=== PATIENT | male | born 1970 | race Caucasian/White ===

== ENCOUNTER 2020-02-12 15:22 | Emergency (ER) | payer SELFPAY ==
[2020-02-12 15:31] VITALS: BP 146/105; PULSE 93; RESP 14; TEMP 36.8; O2SAT 99; BMI 28.7
--- NOTE | 2020-02-12 15:57 | ED_ITS ---
Documented by User: ARTEMIO Ackerman 02/15/20 07:01 HPI - Abdominal Pain General: Chief Complaint: Abdominal Pain Stated Complaint: abd pain Time Seen by Provider: 02/12/20 15:38 Source: patient Mode of arrival: ambulatory Limitations: no limitations History of Present Illness: HPI narrative: Patient is a 50-year-old male who presents to ED today with complaints of diffuse abdominal pain that began 2 to 3 days ago and has progressively worsened. Patient has noticed constipation and states his last normal bowel movement was 3 days ago. He has had 1 extremely small stool since that time but otherwise none. He has tried stool softeners without relief. He does report still being able to pass gas. Patient tells me last night he began vomiting and has not been able to hold down any food or drink since. He reports decreased urination due to the lack of fluid intake. He has not noticed any blood in his vomit. Patient has had a previous c holecystectomy approximately 15 years ago but no other abdominal surgeries. MD elicited complaint: abdominal pain Onset (ago): day(s) Pain Consistency: constant Location: Diffuse Severity: moderate Quality: cramping and fullness Radiation: back Migration to: no migration Exacerbating factors: eating Relieving factors: nothing Associated Symptoms: Reports constipation, nausea and vomiting; Denies chills, coffee ground emesis, diarrhea, dysuria, fever(s), heartburn, hematochezia, hematuria, hematemesis, melena and syncope Review of Systems Const: Denies: fever or chills Eyes: Denies: change in vision or blurry vision Card: Denies: chest pain, palpitations, irregular heart rhythm, lightheadedness, syncope or shortness of breath on exertion Resp: Denies: shortness of breath, productive cough or pain on inspiration GI: Reports: abdominal pain, nausea, vomiting and constipation; Denies: vomiting blood, coffee grounds in vomit, difficulty swallowing, heartburn/indigestion, diarrhea, painful bowel movements, rectal pain, rectal itching, blood in stool, black tarry stool, mucus in stool, white/light colored stool or fatty stool : Denies: flank pain, difficulty urinating, painful urination, urinary frequency, urinary urgency, urinary hesitancy, urinary incontinence, blood in urine, genital pain, testicular pain or scrotal swelling Musc: Denies: neck pain, back pain or joint pain Skin/Breast: Denies: rash Neuro: Denies: headache, numbness in extremities, weakness in extremities or changes in sensation PFSH ED PFSH: Social History Smoking and tobacco status: current every day smoker Physical Exam Const: COMMON NORMALS: average body habitus, oriented x3, no limitations, healthy appearing, alert and well nourished GENERAL APPEARANCE: in distress (appears uncomfortable) Neck/C-Spine: COMMON NORMALS: full ROM, no lymphadenopathy and no meningeal signs GENERAL: Yes normal visual inspection CERVICAL SPINE: Yes cervical ROM normal Resp: COMMON NORMALS: normal respiratory effort and clear to auscultation bilaterally AUSCULTATION: clear to auscultation bilaterally Cardio: COMMON NORMALS: regular rate and regular rhythm RATE: regular rate RHYTHM: regular rhythm GI: COMMON NORMALS: no masses INSPECTION: Yes normal to inspection AUSCULTATION: Yes normoactive bowel sounds PALPATION: Yes tender (throughout but more so across upper abdomen) : COMMON NORMALS: Yes no CVA tenderness BLADDER/KIDNEY EXAM: Yes no CVA tenderness Back/Pelvis: COMMON NORMALS: no CVA tenderness Extremity: COMMON NORMALS: normal to inspection, full ROM, no calf tenderness and no pedal edema Neuro: COMMON NORMALS: oriented x3 SENSORIUM/ORIENTATION: Yes alert MENINGEAL SIGNS: Yes no meningeal signs Skin: COMMON NORMALS: no rashes or lesions noted GENERAL SKIN EXAM: no rashes or lesions noted Course Vital Signs: Vital signs: Vital Signs Temperature 98.3 F 02/12/20 15:31 Pulse Rate 77 02/12/20 20:03 Respiratory Rate 18 02/12/20 20:03 Blood Pressure 180/108 02/12/20 20:03 Pulse Oximetry 97 02/12/20 20:03 MDM - Abdominal Pain MDM Narrative: Medical decision making narrative: Care was transferred to PEPE Thompson at shift change Lab Data: Labs: Lab Results 02/12/20 02/12/20 02/12/20 Range/Units 16:14 16:14 16:14 WBC 15.2 H (4.0-10.0) 10^3/ uL RBC 5.87 H (4.1-5.3) 10^6/u L Hgb 18.0 H (11.7-16.6) g/dL Hct 54.1 H (42.0-52.0) % MCV 92.2 (80-94) fL MCH 30.7 (28.0-34.0) pg MCHC 33.3 (30.0-36.0) g/dL RDW 12.9 (12.1-15.1) % Plt Count 225 (130-400) 10^3/c mm MPV 9.6 (7.4-10.4) fL Neut % (Auto) 75.5 % Lymph % (Auto) 15.2 % Brule % (Auto) 8.6 % Eos % (Auto) 0.1 % Baso % (Auto) 0.3 % Neut # (Auto) 11.5 H (1.8-7.7) 10^3/u L Lymph # (Auto) 2.3 (0.8-4.8) 10^3/u L Brule # (Auto) 1.3 H (0.2-0.9) 10^3/u L Eos # (Auto) 0.0 (0.0-0.8) 10^3/u L Baso # (Auto) 0.1 (0.0-0.1) 10^3/u L Nucleated RBC % (a uto) 0 % Nucleated RBCs # 0.0 /100WBC Sodium 136 (136-145) mmol/L Potassium 4.0 (3.5-5.1) mmol/L Chloride 93 L (98-107) mmol/L Carbon Dioxide 26 (22-29) mmol/L Anion Gap 21.0 H (5-19) BUN 12 (6-20) mg/dL Creatinine 0.9 (0.7-1.2) mg/dL GFR Calculation 89.3 L (90-130) mL/min Glucose 106 (65-115) mg/dL Calculated Osmolal ity 279 L (285-295) mOsm/k g Lactate 1.3 (0.5-2.2) mmol/L Calcium 9.8 (8.5-10.5) mg/dL Total Bilirubin 1.2 (0.15-1.2) mg/dL AST 16 (0-40) U/L ALT 10 (0-41) U/L Alkaline Phosphata se 90 (40-130) IU/L Total Protein 9.0 H (6.6-8.7) g/dL Albumin 4.6 (3.5-5.2) g/dL Globulin 4.4 (1.3-4.6) g/dL Lipase 156 H (13-60) U/L Urine Color (Yellow) Urine Appearance (CLEAR) Urine pH (5-7) Ur Specific Gravit y (1.005-1.030) Urine Protein (Negative) Urine Glucose (UA) (Normal) Urine Ketones (Negative) Urine Blood (Negative) Urine Nitrate (Negative) Urine Bilirubin (NEGATIVE) Urine Urobilinogen (Negative) mg/dL Ur Leukocyte Jesica ase (Negative) Urine RBC (0-2) /hpf Urine WBC (0-5) /hpf Ur Squamous Epith Cells (0-5) Urine Bacteria (NONE) 02/12/20 Range/Units 17:45 WBC (4.0-10.0) 10^3/ uL RBC (4.1-5.3) 10^6/u L Hgb (11.7-16.6) g/dL Hct (42.0-52.0) % MCV (80-94) fL MCH (28.0-34.0) pg MCHC (30.0-36.0) g/dL RDW (12.1-15.1) % Plt Count (130-400) 10^3/c mm MPV (7.4-10.4) fL Neut % (Auto) % Lymph % (Auto) % Brule % (Auto) % Eos % (Auto) % Baso % (Auto) % Neut # (Auto) (1.8-7.7) 10^3/u L Lymph # (Auto) (0.8-4.8) 10^3/u L Brule # (Auto) (0.2-0.9) 10^3/u L Eos # (Auto) (0.0-0.8) 10^3/u L Baso # (Auto) (0.0-0.1) 10^3/u L Nucleated RBC % (a uto) % Nucleated RBCs # /100WBC Sodium (136-145) mmol/L Potassium (3.5-5.1) mmol/L Chloride (98-107) mmol/L Carbon Dioxide (22-29) mmol/L Anion Gap (5-19) BUN (6-20) mg/dL Creatinine (0.7-1.2) mg/dL GFR Calculation (90-130) mL/min Glucose (65-115) mg/dL Calculated Osmolal ity (285-295) mOsm/k g Lactate (0.5-2.2) mmol/L Calcium (8.5-10.5) mg/dL Total Bilirubin (0.15-1.2) mg/dL AST (0-40) U/L ALT (0-41) U/L Alkaline Phosphata se (40-130) IU/L Total Protein (6.6-8.7) g/dL Albumin (3.5-5.2) g/dL Globulin (1.3-4.6) g/dL Lipase (13-60) U/L Urine Color Yellow (Yellow) Urine Appearance Clear (CLEAR) Urine pH 5 (5-7) Ur Specific Gravit y 1.005 (1.005-1.030) Urine Protein 1+ H (Negative) Urine Glucose (UA) Norm (Normal) Urine Ketones 2+ H (Negative) Urine Blood 2+ H (Negative) Urine Nitrate Negative (Negative) Urine Bilirubin Neg (NEGATIVE) Urine Urobilinogen 1 H (Negative) mg/dL Ur Leukocyte Jesica ase Negative (Negative) Urine RBC 5-10 H (0-2) /hpf Urine WBC None (0-5) /hpf Ur Squamous Epith Cells 0-4 H (0-5) Urine Bacteria 1+ H (NONE) Discharge Plan Discharge Patient Disposition: Home, Self-Care Clinical Impression: Abnormal serum level of lipase Constipation Qualifiers: Constipation type: unspecified constipation type Qualified Code(s): K59.00 - Constipation, unspecified Condition: Stable Prescriptions: No Action aspirin 325 mg Tablet 325 mg PO DAILY RF: 0 lisinopril 40 mg tablet 40 mg PO DAILY RF: 0 Discharge Orders: Discharge Order (Routine); Ordered 02/12/20 Ordered By: Eladio Chao Referrals: Riya Munoz APN [Primary Care Provider] - Discharge Diet: Advance as tolerated and Usual diet Discharge Activity: Increase activity as tolerated Patient Instructions: Constipation (ED) Activity Restrictions/Additional Instructions: Follow-up with medical provider as directed. Take medications as prescribed. Return to the ER or your medical provider if condition worsens. Please read and understand discharge instructions. If any questions ask please. Follow-up with your provider on Saturday or Saturday and get a recheck of your lipase level because it is elevated. Return here to the ER if symptoms worsen can use magnesium citrate to help with constipation. Advance diet slowly stay on liquids next 24 hours Discharge Date/Time: 02/12/20 20:03 Coding Level of Care Code ED Final Assembly Worker for Chg Fwd Exam Comprehensive Documented by User: PEPE Thompson 02/12/20 19:38 HPI - Abdominal Pain General: Chief Complaint: Abdominal Pain Stated Complaint: abd pain Time Seen by Provider: 02/12/20 15:38 [facility] ED PFSH: Social History Smoking and tobacco status: current every day smoker Course Vital Signs: Vital signs: Vital Signs Temperature 98.3 F 02/12/20 15:31 Pulse Rate 77 02/12/20 20:03 Respiratory Rate 18 02/12/20 20:03 Blood Pressure 180/108 02/12/20 20:03 Pulse Oximetry 97 02/12/20 20:03 MDM - Abdominal Pain MDM Narrative: Medical decision making narrative: Discussed case with Dr. Nghia Bonilla agrees with plan reviewed CT together. Lab Data: Labs: Lab Results 02/12/20 02/12/20 02/12/20 Range/Units 16:14 16:14 16:14 WBC 15.2 H (4.0-10.0) 10^3/ uL RBC 5.87 H (4.1-5.3) 10^6/u L Hgb 18.0 H (11.7-16.6) g/dL Hct 54.1 H (42.0-52.0) % MCV 92.2 (80-94) fL MCH 30.7 (28.0-34.0) pg MCHC 33.3 (30.0-36.0) g/dL RDW 12.9 (12.1-15.1) % Plt Count 225 (130-400) 10^3/c mm MPV 9.6 (7.4-10.4) fL Neut % (Auto) 75.5 % Lymph % (Auto) 15.2 % Brule % (Auto) 8.6 % Eos % (Auto) 0.1 % Baso % (Auto) 0.3 % Neut # (Auto) 11.5 H (1.8-7.7) 10^3/u L Lymph # (Auto) 2.3 (0.8-4.8) 10^3/u L Brule # (Auto) 1.3 H (0.2-0.9) 10^3/u L Eos # (Auto) 0.0 (0.0-0.8) 10^3/u L Baso # (Auto) 0.1 (0.0-0.1) 10^3/u L Nucleated RBC % (a uto) 0 % Nucleated RBCs # 0.0 /100WBC Sodium 136 (136-145) mmol/L Potassium 4.0 (3.5-5.1) mmol/L Chloride 93 L (98-107) mmol/L Carbon Dioxide 26 (22-29) mmol/L Anion Gap 21.0 H (5-19) BUN 12 (6-20) mg/dL Creatinine 0.9 (0.7-1.2) mg/dL GFR Calculation 89.3 L (90-130) mL/min Glucose 106 (65-115) mg/dL Calculated Osmolal ity 279 L (285-295) mOsm/k g Lactate 1.3 (0.5-2.2) mmol/L Calcium 9.8 (8.5-10.5) mg/dL Total Bilirubin 1.2 (0.15-1.2) mg/dL AST 16 (0-40) U/L ALT 10 (0-41) U/L Alkaline Phosphata se 90 (40-130) IU/L Total Protein 9.0 H (6.6-8.7) g/dL Albumin 4.6 (3.5-5.2) g/dL Globulin 4.4 (1.3-4.6) g/dL Lipase 156 H (13-60) U/L Urine Color (Yellow) Urine Appearance (CLEAR) Urine pH (5-7) Ur Specific Gravit y (1.005-1.030) Urine Protein (Negative) Urine Glucose (UA) (Normal) Urine Ketones (Negative) Urine Blood (Negative) Urine Nitrate (Negative) Urine Bilirubin (NEGATIVE) Urine Urobilinogen (Negative) mg/dL Ur Leukocyte Jesica ase (Negative) Urine RBC (0-2) /hpf Urine WBC (0-5) /hpf Ur Squamous Epith Cells (0-5) Urine Bacteria (NONE) 02/12/20 Range/Units 17:45 WBC (4.0-10.0) 10^3/ uL RBC (4.1-5.3) 10^6/u L Hgb (11.7-16.6) g/dL Hct (42.0-52.0) % MCV (80-94) fL MCH (28.0-34.0) pg MCHC (30.0-36.0) g/dL RDW (12.1-15.1) % Plt Count (130-400) 10^3/c mm MPV (7.4-10.4) fL Neut % (Auto) % Lymph % (Auto) % Brule % (Auto) % Eos % (Auto) % Baso % (Auto) % Neut # (Auto) (1.8-7.7) 10^3/u L Lymph # (Auto) (0.8-4.8) 10^3/u L Brule # (Auto) (0.2-0.9) 10^3/u L Eos # (Auto) (0.0-0.8) 10^3/u L Baso # (Auto) (0.0-0.1) 10^3/u L Nucleated RBC % (a uto) % Nucleated RBCs # /100WBC Sodium (136-145) mmol/L Potassium (3.5-5.1) mmol/L Chloride (98-107) mmol/L Carbon Dioxide (22-29) mmol/L Anion Gap (5-19) BUN (6-20) mg/dL Creatinine (0.7-1.2) mg/dL GFR Calculation (90-130) mL/min Glucose (65-115) mg/dL Calculated Osmolal ity (285-295) mOsm/k g Lactate (0.5-2.2) mmol/L Calcium (8.5-10.5) mg/dL Total Bilirubin (0.15-1.2) mg/dL AST (0-40) U/L ALT (0-41) U/L Alkaline Phosphata se (40-130) IU/L Total Protein (6.6-8.7) g/dL Albumin (3.5-5.2) g/dL Globulin (1.3-4.6) g/dL Lipase (13-60) U/L Urine Color Yellow (Yellow) Urine Appearance Clear (CLEAR) Urine pH 5 (5-7) Ur Specific Gravit y 1.005 (1.005-1.030) Urine Protein 1+ H (Negative) Urine Glucose (UA) Norm (Normal) Urine Ketones 2+ H (Negative) Urine Blood 2+ H (Negative) Urine Nitrate Negative (Negative) Urine Bilirubin Neg (NEGATIVE) Urine Urobilinogen 1 H (Negative) mg/dL Ur Leukocyte Jesica ase Negative (Negative) Urine RBC 5-10 H (0-2) /hpf Urine WBC None (0-5) /hpf Ur Squamous Epith Cells 0-4 H (0-5) Urine Bacteria 1+ H (NONE) Discharge Plan Discharge Patient Disposition: Home, Self-Care Clinical Impression: Abnormal serum level of lipase Constipation Qualifiers: Constipation type: unspecified constipation type Qualified Code(s): K59.00 - Constipation, unspecified Condition: Stable Prescriptions: No Action aspirin 325 mg Tablet 325 mg PO DAILY RF: 0 lisinopril 40 mg tablet 40 mg PO DAILY RF: 0 Discharge Orders: Discharge Order (Routine); Ordered 02/12/20 Ordered By: Eladio Chao Referrals: Riya Munoz, SAP BASIS ADMINISTRATOR [Primary Care Provider] - Discharge Diet: Advance as tolerated and Usual diet Discharge Activity: Increase activity as tolerated Patient Instructions: Constipation (ED) Activity Restrictions/Additional Instructions: Follow-up with medical provider as directed. Take medications as prescribed. Return to the ER or your medical provider if condition worsens. Please read and understand discharge instructions. If any questions ask please. Follow-up with your provider on Saturday or Saturday and get a recheck of your lipase level because it is elevated. Return here to the ER if symptoms worsen can use magne sium citrate to help with constipation. Advance diet slowly stay on liquids next 24 hours Discharge Date/Time: 02/12/20 20:03 Coding Level of Care Code ED Final Assembly Worker for Chg Fwd Exam Comprehensive
--- NOTE | 2020-02-12 15:58 | CT_ITS ---
WS: [id number] CT abdomen pelvis w con* [id number] REASON FOR EXAM: abdominal pain; radiation into back; constipation, vomiting IV CONTRAST ADMINISTERED: Omnipaque 350 95 mL. TOTAL EXAM DLP: 853.[address] scans at [facility] use at least one of these dose optimization techniques: automat ed exposure control; mA and/or kV adjustment per patient size (includes targeted exams where dose is matched to clinical indication); or iterative reconstruction. FINDINGS: The lower lungs and mediastinum were normal. The liver showed normal appearance previous cholecystectomy findings are seen. The pancreas head, body, tail were normal. The spleen, stomach, right left adrenal glands were normal. The aorta inferior vena cava were normal. The adrenal glands show no abnormalities. The right and left kidneys show normal appearance Noted The large bowel showed fecal stasis throughout its entirety no impaction is seen The small bowel patterns were normal there is no thickening of the carl of the small bowel. The distal aorta and iliac arteries were normal. The appendix was normal. The large and small bowel distally showed isolated diverticular changes no diverticulitis. The urinary bladder was normal. The prostate showed no abnormalities. Generated changes throughout the lumbar spine with degenerate disc changes L5-S1. The pelvis show no bony abnormalities. CT/CT abdomen pelvis w con* [id number] IMPRESSION: Diverticulosis of the distal sigmoid colon. Fecal stasis throughout the colon. Degenerated changes of the lumbar spine with degenerated disc changes L5-S1.
[2020-02-12 16:00] VITALS: O2SAT 93
[2020-02-12 16:27] LABS: Basophils # 0.1 10^3/uL (0.0-0.1); Basophils % 0.3 %; Eosinophils % 0.1 %; Hematocrit 54.1 % (42.0-52.0); Lymphocytes # 2.3 10^3/uL (0.8-4.8); Lymphocytes % 15.2 %; Mean Corpuscular HGB Conc 33.3 g/dL (30.0-36.0); Mean Corpuscular Hemoglobin 30.7 pg (28.0-34.0); Mean Corpuscular Volume 92.2 fL (80-94); Mean Platelet Volume 9.6 fL (7.4-10.4); Monocytes # 1.3 10^3/uL (0.2-0.9); Monocytes % 8.6 %; Neutrophils # 11.5 10^3/uL (1.8-7.7); Neutrophils % 75.5 %; Nucleated Red Blood Cells % 0 %; Platelet Count 225 10^3/cmm (130-400); Red Blood Count 5.87 10^6/uL (4.1-5.3); Red Cell Distribution Width 12.9 % (12.1-15.1); White Blood Count 15.2 10^3/uL (4.0-10.0)
[2020-02-12] MEDS: morphine 4 mg/mL SDV 1 mL IVP (16:37)
[2020-02-12] MEDS: ondansetron 2 mg/ML SDV 2 mL 4 MG IVP (16:37)
[2020-02-12] MEDS: sodium chloride 0.9% 1,000 ML 999 ML IV (16:37)
[2020-02-12 16:42] VITALS: BP 186/116; PULSE 90; O2SAT 95
[2020-02-12 16:42] LABS: Alanine Aminotransferase 10 U/L (0-41); Albumin Level 4.6 g/dL (3.5-5.2); Alkaline Phosphatase 90 IU/L (40-130); Aspartate Amino Transferase 16 U/L (0-40); Blood Urea Nitrogen 12 mg/dL (6-20); Calcium 9.8 mg/dL (8.5-10.5); Carbon Dioxide 26 mmol/L (22-29); Chloride 93 mmol/L (98-107); Creatinine Clr Calc Pharmacy 111.2322; Globulin 4.4 g/dL (1.3-4.6); Glomerular Filtration Rate 89.3 mL/min (90-130); Glucose 106 mg/dL (65-115); Lipase 156 U/L (13-60); Osmolality Calculated 279 mOsm/kg (285-295); Sodium 136 mmol/L (136-145); Total Bilirubin 1.2 mg/dL (0.15-1.2)
[2020-02-12] MEDS: iohexol 300 mg/mL 100 mL Btl IV (16:48)
[2020-02-12 16:58] LABS: Lactate (Lactic Acid level) 1.3 mmol/L (0.5-2.2)
[2020-02-12 17:48] VITALS: BP 163/110; PULSE 93; O2SAT 97
[2020-02-12 19:25] LABS: Add Urine Microscopic? YES; Bilirubin Urine Neg (NEGATIVE); Blood Urine 2+ (Negative); Glucose Urine UA Norm (Normal); Ketones Urine 2+ (Negative); Leukocyte Esterase Urine Negative (Negative); Nitrate Urine Negative (Negative); Protein Urine 1+ (Negative); Specific Gravity, Urine 1.005 (1.005-1.030); Urine Appearance Clear (CLEAR); Urine Color Yellow (Yellow); Urobilinogen Urine 1 mg/dL (Negative); pH Urine 5 (5-7)
[2020-02-12 19:27] LABS: Add Urine Culture? No; Bacteria Urine 1+; Squamous Epithelial Cell Urine 0-4 (0-5)
[2020-02-12 20:03] VITALS: BP 180/108; PULSE 77; RESP 18; O2SAT 97
== END 2020-02-12 20:03 | disposition home or self-care (01) ==
PROVIDERS: Physician Assistant; Emergency Provider Nurse Practitioner Family; PCP Nurse Practitioner
DX: K59.00 Constipation, unspecified (principal); R74.8 Abnormal levels of other serum enzymes; Z79.82 Long term (current) use of aspirin; F17.210 Nicotine dependence, cigarettes, uncomplicated
CPT/HCPCS: 12345; 74177; 80053; 81001; 83605; 83690; 85025; 96361; 96374; 96375; 99283; A9270; J2270; J2405; J7030; Q9967

== ENCOUNTER 2020-05-25 16:36 | Outpatient (CLI) | payer SELFPAY ==
--- NOTE | 2020-05-25 | USCV_ITS ---
Angel Hazel Age: 50 Gender: M : 1970 Exam Date: 05/25/2020 16:56 Ordering Phys: Riya Munoz APN Technologist: JOSE RAPHAEL [place] [facility] [place]: [place] LEG SWELLING PROCEDURES: Venous duplex imaging was performed in only the right lower extremity. The following venous structures were evaluated: common femoral vein, profunda vein, proximal portion of the greater saphenous vein, superficial femoral vein, and the popliteal vein. In addition, the posterior tibial and peroneal trunk were evaluated. Serial compression, augmentation maneuvers, and spectral Doppler flow evaluation were performed. FINDINGS: There is DVT noted within the right common femoral, profunda, and at the femoral vein at the prox, mid, and distal locations. There is SVT noted in the GSV extending from the SFJ to the level of the knee. Soft tissue mass measuring 3.7 x 1.2 cm in the groin CONCLUSIONS 1. DVT involving the right common femoral, profunda femoral and femoral vein on the right side, causing almost total occlusion. Minimal flow was noted in the profunda femoral and the proximal femoral vein. Popliteal, posterior tibial and peroneal trunk veins were found to be patent with no evidence of thrombosis 2. The greater saphenous vein also was found to be thrombosed from the saphenofemoral junction to the knee area. 3. Soft tissue mass in the right groin, appears to be vascular , possible enlarged lymph node measuring 3.7 x 1.2 cm. 4. No previous studies available for comparison Dr Ronald Clark MD [facility] (Electronically Signed) Final Date: 26 May 2020 23:43 S
== END 2020-05-25 16:37 | disposition home or self-care (01) ==
LOC: RAD 16:38
PROVIDERS: PCP Nurse Practitioner; Visit Provider Nurse Practitioner
DX: M79.604 Pain in right leg (principal); M79.89 Other specified soft tissue disorders; I82.411 Acute embolism and thrombosis of right femoral vein; I82.811 Embolism and thrombosis of superficial veins of right lower extremity; R19.00 Intra-abdominal and pelvic swelling, mass and lump, unspecified site
CPT/HCPCS: 93971

== ENCOUNTER 2020-05-25 17:15 | Emergency (ER) | payer SELFPAY ==
[2020-05-25 17:29] VITALS: BMI 30.5
[2020-05-25 17:36] VITALS: BP 190/101; PULSE 74; RESP 18; TEMP 36.9; O2SAT 97
--- NOTE | 2020-05-25 17:58 | CT_ITS ---
WS: [id number] EXAM: CT PULMONARY ANGIOGRAM DATE OF EXAMINATION: 05/25/2020, 1837 hours COMPARISON: None. HISTORY: 50 years old with history of blood clots. Hemoptysis and rib pain. Right leg swelling and redness. Hi story of emphysema. Clinical working diagnosis of pulmonary embolus. TECHNIQUE: Transaxial computed tomography images obtained through the chest utilizing 74 mL of Omnipaque 350 IV contrast with images acquired in the pulmonary arterial phase. Images viewed in multiple windows with reconstructions. DLP: 626.[address] scans at [facility] use at least one of these dose optimization techniques: automat ed exposure control; mA and/or kV adjustment per patient size (includes targeted exams where dose is matched to clinical indication); or iterative reconstruction. FINDINGS: The pulmonary artery is well opacified. No filling defects of a pulmonary embolus are identified. Reagan gs are clear other than minimal dependent atelectasis. No effusion or pneumothorax is seen. No medias tinal mass or adenopathy is demonstrated. Heart size is considered slightly enlarged. Thoracic and up per abdominal aorta is normal in caliber. Lumen opacifies only. Minimal peripheral calcified plaque. Axillary regions are normal in appearance. The liver attenuation is normal. Clips in the gallbladder fossa correlate with cholecystectomy changes. No biliary dilatat ion. Visualized portions of the kidneys, adrenals, spleen and pancreas are unremarkable. Scattered ch anges of arthritis are seen in the spine. CT/CT angio chest PE protcl [id number] IMPRESSION: No findings of pulmonary embolus identified. Minimal atelectasis in the lung bases. No noncalcified pulmonary nodules. No ma ss or adenopathy. Other nonemergent findings as described in the body of the re port..
--- NOTE | 2020-05-25 18:20 | ED_ITS ---
HPI - Extremity Problem General: Chief complaint: Extremity Problem,Nontraumatic Stated complaint: BLOOD CLOTS Time Seen by Provider: 05/25/20 17:58 Source: patient Mode of arrival: ambulatory Limitations: no limitations History of Present Illness: HPI Narrative: Caleb sweeney 50-year-old male sent from radiology for positive ultrasound. His ultrasound showed extensive DVT in the right lower extremity. Patient has a history of DVT and PE. Patient is denying any chest pain or shortness of breath. Associated symptoms: Deny chest pain, fever(s) or rash Review of Systems Const: Denies: fever(s), chills, body aches, fatigue, malaise or diaphoresis Eyes: Denies: change in vision, blurry vision, photophobia, eye discomfort, eye discharge or eye redness ENMT: Denies: throat pain, odynophagia, hoarseness, swelling of lips/tongue, ear or mastoid pain, ear discharge, change in hearing or nasal discharge Card: Denies: chest pain, palpitations, irregular heart rhythm, edema, lightheadedness, syncope, pre-syncope, dyspnea on exertion or orthopnea Resp: Denies: dyspnea, productive cough, non-productive cough, wheezing, hemoptysis or chest congestion GI: Denies: abdominal pain, nausea, vomiting, hematemesis, coffee ground emesis, heartburn, diarrhea, constipation, GI cramping, hematochezia or melena : Denies: flank pain, dysuria, urinary frequency, urinary urgency or hematuria Musc: Reports: other (Right lower extremity swelling); Denies: neck pain, back pain, extremity pain, extremity swelling, joint pain, joint swelling, joint redness, joint warmth or joint stiffness Skin/Breast: Denies: rash, pruritus, erythema or skin tenderness Neuro: Denies: headache(s), numbness in extremities, weakness in extremities, sensory changes, lack of coordination, difficulty walking, dizziness, vertigo, confusion, Slurred speech present or seizure-like activity Trino/Lymph: Denies: easy bruising, easy bleeding, petechiae, purpura or enlarged lymph nodes All/Imm: Denies: urticaria, throat swelling, tongue swelling, facial swelling or acute wheezing PFS ED PFSH: Medical History (Updated 05/25/20 @ 19:44 by Jennifer Ko) History of DVT (deep vein thrombosis) History of pulmonary embolism Hypertension Social History Smoking and tobacco status: current every day smoker Physical Exam Const: COMMON NORMALS: no acute distress, patient oriented x3, no limitations, healthy appearing and well nourished GENERAL APPEARANCE: cooperative, well kempt and well developed HENMT: COMMON NORMALS: normocephalic, atraumatic, external ears normal, EAC's normal and Normal external nose present HEAD & SCALP: normal to inspection, normocephalic and atraumatic FACE & SINUS: normal facial exam and face symmetric NOSE: Normal external nose present and Normal nares present EXTERNAL EAR: Yes external ears normal EXTERNAL AUDITORY CANAL: EAC's normal MOUTH: Normal oral and palatal mucosa present, lip normal and tongue normal Eye: COMMON NORMALS: Equal, round and reactive pupils present and conjunctivae normal GENERAL EYE: appearance normal, both eyes and all related structures ALIGNMENT: Yes alignment normal PERIORBITAL: periorbital findings normal EYELID: eyelids normal CONJUNCTIVA: Yes conjunctivae normal SCLERA: sclerae normal PUPIL: Yes Equal, round and reactive pupils present Neck/C-Spine: COMMON NORMALS: full ROM, no lymphadenopathy, supple, no meningeal signs and no JVD GENERAL: Yes normal visual inspection and Yes trachea midline Chest: COMMONS NORMALS: normal inspection of the chest and normal palpation of entire chest wall Resp: COMMON NORMALS: normal respiratory effort, No retractions, No use of accessory muscles and clear to auscultation bilaterally EFFORT & INSPECTION: Yes able to speak in complete sentences and Yes symmetric chest movement AUSCULTATION: clear to auscultation bilaterally, no crackles, no rales, no rhonchi and no wheezes Cardio: COMMON NORMALS: no JVD, regular rate, regular rhythm, S1 normal heart sound present and S2 normal heart sound present RATE: regular rate RHYTHM: regular rhythm HEART SOUNDS: S1 normal heart sound present, S2 normal heart sound present, no click, no gallops, no murmurs, no rubs and abnormal split S2 GI: COMMON NORMALS: Soft to palpation and No hepatosplenomegaly present PALPATION: Yes Soft to palpation, No Tenderness to palpation present (GI), No Guarding due to palpation present (GI), No Rigid due to palpation, Yes No hepatosplenomegaly present, No Hernia present, No Palpable mass present and No Pulsatile mass present : COMMON NORMALS: Yes no CVA tenderness BLADDER/KIDNEY EXAM: Yes no CVA tenderness Back/Pelvis: COMMON NORMALS: no CVA tenderness, thoracic and lumbar spine normal to inspection, no thoracic nor lumbar tenderness and thoraco-lumbar ROM normal Extremity: COMMON NORMALS: full ROM, capillary refill normal and no joint enlargement NARRATIVE EXTREMITY EXAM: Right lower extremity swelling the entire length the extremity. Neuro: COMMON NORMALS: patient oriented x3, CN's II-XII intact bilaterally, moves all extremities, no focal motor deficits and no sensory deficits noted MENINGEAL SIGNS: Yes no meningeal signs SPEECH: speech normal Psych: COMMON NORMALS: mental status grossly normal, Normal thought process present, cooperative, normal affect, speech normal and activity/motor behavior normal APPEARANCE: Yes well kempt SPEECH: Yes normal speech THOUGHT PROCESS: Normal thought process present Skin: COMMON NORMALS: no rashes or lesions noted, turgor normal, no jaundice, no petechiae and no mottling GENERAL SKIN EXAM: no rashes or lesions noted and turgor normal Course Vital Signs: Vital signs: Vital Signs Temperature 98.4 F 05/25/20 17:36 Pulse Rate 82 05/25/20 19:33 Respiratory Rate 17 05/25/20 19:33 Blood Pressure 190/101 05/25/20 17:36 Pulse Oximetry 98 05/25/20 19:33 MDM - Extremity (Nontraumatic) MDM Narrative: Medical decision making narrative: Angel is a 50-year-old male who was referred here after having an ultrasound positive for DVT the right lower extremity. There is no evidence of PE, phlegmasia cerulea dolens, ph legmasia alba Markus's or otherwise. Patient will follow-up with his doctor to return back to work. At this time he shows no sign of PE. He was given a shot of Lovenox here and he was given a handwritten prescription for Eliquis to begin tomorrow. Lab Data: Labs: Lab Results 05/25/20 05/25/20 05/25/20 Range/Units 18:20 18:20 18:20 WBC 7.0 (4.0-10.0) 10^3/ uL RBC 4.67 (4.1-5.3) 10^6/u L Hgb 14.3 (11.7-16.6) g/dL Hct 43.8 (42.0-52.0) % MCV 93.8 (80-94) fL MCH 30.6 (28.0-34.0) pg MCHC 32.6 (30.0-36.0) g/dL RDW 13.5 (12.1-15.1) % Plt Count 152 (130-400) 10^3/c mm MPV 9.3 (7.4-10.4) fL Neut % (Auto) 43.1 % Lymph % (Auto) 45.5 % [place] % (Auto) 8.9 % Eos % (Auto) 1.6 % Baso % (Auto) 0.6 % Neut # (Auto) 3.04 (1.8-7.7) 10^3/u L Lymph # (Auto) 3.2 (0.8-4.8) 10^3/u L [place] # (Auto) 0.6 (0.2-0.9) 10^3/u L Eos # (Auto) 0.1 (0.0-0.8) 10^3/u L Baso # (Auto) 0.0 (0.0-0.1) 10^3/u L Nucleated RBC % (a uto) 0 % Nucleated RBCs # 0.0 /100WBC Sodium 136 (136-145) mmol/L Potassium 3.9 (3.5-5.1) mmol/L Chloride 100 (98-107) mmol/L Carbon Dioxide 28 (22-29) mmol/L Anion Gap 11.9 (5-19) BUN 14 (6-20) mg/dL Creatinine 1.0 (0.7-1.2) mg/dL GFR Calculation 79.1 L (90-130) mL/min Glucose 93 (65-115) mg/dL Calculated Osmolal ity 278 L (285-295) mOsm/k g Calcium 9.0 (8.5-10.5) mg/dL Magnesium 2.3 (1.7-2.3) mg/dL Total Bilirubin 0.5 (0.15-1.2) mg/dL AST 17 (0-40) U/L ALT 9 (0-41) U/L Alkaline Phosphata se 83 (40-130) IU/L Troponin T Baselin e 6 (0-15) ng/L NT-Pro-B Natriuret Pep 502 H (0-125) pg/mL Total Protein 7.3 (6.6-8.7) g/dL Albumin 4.1 (3.5-5.2) g/dL Globulin 3.2 (1.3-4.6) g/dL Imaging Data^: CT Chest: Radiologist's impression: [facility] [address] [place] [address] CT Scan Report Signed Patient: Angel Hazel Unit #: [id number] : 1970 Age/Sex: 50 / M ADM Date: 05/25/20 Loc: ER Room/Bed: Attending Dr: Ordering Provider/Ordering MD: Jennifer Ko DO Date of Service: 05/25/20 Procedure(s): CT angio chest PE protcl [id number] Accession Number(s): [id number] Report Number: [id number] WS: [id number] EXAM: CT PULMONARY ANGIOGRAM DATE OF EXAMINATION: 05/25/2020, 1837 hours COMPARISON: None. HISTORY: 50 years old with history of blood clots. Hemoptysis and rib pain. Right leg swelling and redness. History of emphysema. Clinical working diagnosis of pulmonary embolus. TECHNIQUE: Transaxial computed tomography images obtained through the chest utilizing 74 mL of Omnipaque 350 IV contrast with images acquired in the pulmonary arterial phase. Images viewed in multiple windows with reconstructions. DLP: 626.[address] scans at [facility] use at least one of these dose optimization techniques: automated exposure control; mA and/or kV adjustment per patient size (includes targeted exams where dose is matched to clinical indication); or iterative reconstruction. FINDINGS: The pulmonary artery is well opacified. No filling defects of a pulmonary emb olus are identified. Lungs are clear other than minimal dependent atelectasis. No effusion or pneumothorax is seen. No mediastinal mass or adenopathy is demonstrated. Heart size is considered slight ly enlarged. Thoracic and upper abdominal aorta is normal in caliber. Lumen opacifies only. Minimal peripheral calcified plaque. Axillary regions are normal in appearance. The liver attenuation is normal. Clips in the gallbladder fossa correlate with cholecystectomy changes. No biliary dilatation. Visualized portions of the kidneys, adrenals, spleen and pancreas are unremarkable. Scattered changes of arthritis are seen in the spine. CT/CT angio chest PE protcl [id number] IMPRESSION: No findings of pulmonary embolus identified. Minimal atelectasis in the lung bases. No noncalcified pulmonary nodules. No mass or adenopathy. Other nonemergent findings as described in the body of the report.. Dictated By: Simon Mccarty MD Signed By: Simon Mccarty MD Signed Date/Time: 05/25/201858 DD/ 54 Discharge Plan Discharge Patient Disposition: Home Clinical Impression: Deep vein thrombosis of lower extremity Qualifiers: Affected thrombotic vein of extremity: femoral Chronicity: acute Laterality: right Qualified Code(s): I82.411 - Acute embolism and thrombosis of right femoral vein Condition: Stable Prescriptions: No Action aspirin 325 mg Tablet 325 mg PO DAILY RF: 0 lisinopril 40 mg tablet 40 mg PO DAILY RF: 0 Discharge Orders: Discharge Order (Routine); Ordered 05/25/20 Ordered By: Jennifer Ko Referrals: Riya Munoz APN [Primary Care Provider] - 1-3 days Discharge Diet: Advance as tolerated Discharge Activity: Limit activity as instructed Patient Instructions: Deep Venous Thrombosis (ED) Activity Restrictions/Additional Instructions: Please return to the ER immediately for any of the signs or symptoms listed on your discharge instruction sheets, worsening/changing of your symptoms, you are not getting better as quickly as expected, or for ANY other cause or concerns. Follow-up with your doctor for release to return back to work. Return to ER for chest pain, shortness of breath, fever, vomiting, or for any other cause for concern. Be certain to start your Eliquis tomorrow and follow-up with your primary care provider for directions on future management of your DVT. Stand Alone Forms: Work/School Release Coding Level of Care Code ED Programs Manager for [employer] Fwshelby Exam Comprehensive
[2020-05-25 18:27] LABS: Basophils % 0.6 %; Eosinophils # 0.1 10^3/uL (0.0-0.8); Eosinophils % 1.6 %; Hematocrit 43.8 % (42.0-52.0); Hemoglobin 14.3 g/dL (11.7-16.6); Lymphocytes # 3.2 10^3/uL (0.8-4.8); Lymphocytes % 45.5 %; Mean Corpuscular HGB Conc 32.6 g/dL (30.0-36.0); Mean Corpuscular Hemoglobin 30.6 pg (28.0-34.0); Mean Corpuscular Volume 93.8 fL (80-94); Mean Platelet Volume 9.3 fL (7.4-10.4); Monocytes # 0.6 10^3/uL (0.2-0.9); Monocytes % 8.9 %; Neutrophils # 3.04 10^3/uL (1.8-7.7); Neutrophils % 43.1 %; Nucleated Red Blood Cells % 0 %; Platelet Count 152 10^3/cmm (130-400); Red Blood Count 4.67 10^6/uL (4.1-5.3); Red Cell Distribution Width 13.5 % (12.1-15.1)
[2020-05-25] MEDS: iohexol 350 mg/mL 100 mL Btl IV (18:43)
[2020-05-25 18:47] LABS: Troponin(5th) Baseline 6 ng/L (0-15)
[2020-05-25] MEDS: sodium chloride 0.9% 1,000 ML 100 ML IV (18:51)
[2020-05-25] MEDS: enoxaparin 100 mg/mL Syringe 96 MG SUBCUT (18:51)
[2020-05-25 18:54] VITALS: PULSE 84
[2020-05-25 18:56] LABS: Alanine Aminotransferase 9 U/L (0-41); Albumin Level 4.1 g/dL (3.5-5.2); Alkaline Phosphatase 83 IU/L (40-130); Anion Gap 11.9 (5-19); Aspartate Amino Transferase 17 U/L (0-40); Blood Urea Nitrogen 14 mg/dL (6-20); Carbon Dioxide 28 mmol/L (22-29); Chloride 100 mmol/L (98-107); Globulin 3.2 g/dL (1.3-4.6); Glomerular Filtration Rate 79.1 mL/min (90-130); Glucose 93 mg/dL (65-115); Magnesium 2.3 mg/dL (1.7-2.3); NT Pro B Type Natriuretic Pept 502 pg/mL (0-125); Osmolality Calculated 278 mOsm/kg (285-295); Potassium 3.9 mmol/L (3.5-5.1); Sodium 136 mmol/L (136-145); Total Bilirubin 0.5 mg/dL (0.15-1.2); Total Protein 7.3 g/dL (6.6-8.7)
[2020-05-25] MEDS: sodium chloride 0.9% 1,000 ML 999 ML IV (19:02)
[2020-05-25 19:33] VITALS: PULSE 82; RESP 17; O2SAT 98
[2020-05-25 20:15] VITALS: BP 185/124; PULSE 73; RESP 16; O2SAT 96
[2020-05-25 20:16] VITALS: BP 185/111; PULSE 73; RESP 17; O2SAT 97
== END 2020-05-25 20:15 | disposition home or self-care (01) ==
PROVIDERS: Emergency Provider Emergency Medicine; PCP Nurse Practitioner
DX: I82.411 Acute embolism and thrombosis of right femoral vein (principal); Z79.82 Long term (current) use of aspirin; I10 Essential (primary) hypertension; F17.210 Nicotine dependence, cigarettes, uncomplicated; Z86.718 Personal history of other venous thrombosis and embolism
CPT/HCPCS: 12345; 36415; 71275; 80053; 83735; 83880; 84484; 85025; 96360; 96361; 96372; 99282; 99284; J1650; J7030; Q9967

== ENCOUNTER 2020-05-30 20:54 | Emergency (ER) | payer SELFPAY ==
[2020-05-30 20:58] VITALS: BP 181/108; PULSE 84; RESP 18; TEMP 36.3; O2SAT 96; BMI 29.9
--- NOTE | 2020-05-30 21:15 | CTR_ITS ---
PROCEDURE INFORMATION: Exam: CT Angiography Chest With Contrast Exam date and time: 05/30/2020 9:18 PM Age: 50 years old Clinical indication: Abdominal tenderness; Shortness of breath; Prior surgery; Surgery type: Gb; Additional info: SOB TECHNIQUE: Imaging protocol: Computed tomographic angiography of the chest with intravenous contrast. 3D rendering (Not supervised by radiologist): MIP and/or 3D reconstructed images were created by the technologist. Radiation optimization: All CT scans at this facility use at least one of these dose optimization techniques: automated exposure control; mA and/or kV adjustment per patient size (includes targeted exams where dose is matched to clinical indication); or iterative reconstruction. Contrast material: OMNI 350; Contrast volume: 95 ml; Contrast route: INTRAVENOUS (IV); COMPARISON: CT angio chest PE prot [id number] 05/25/2020 6:36 PM RADIATION DOSE METRICS: Total DLP (mGy-cm): 1677.11 FINDINGS: Pulmonary arteries: Normal. No pulmonary emboli. Aorta: Unremarkable. No aortic aneurysm. No aortic dissection. Lungs: Right middle and lingular lobe atelectasis Pleural space: Unremarkable. No pneumothorax. No pleural effusion. Heart: Unremarkable. No cardiomegaly. No pericardial effusion. Lymph nodes: Unremarkable. No enlarged lymph nodes. Bones/joints: Unremarkable. No acute fracture. Soft tissues: Unremarkable. IMPRESSION: 1. Negative for pulmonary embolus 2. Right middle and lingular lobe atelectasis PROCEDURE INFORMATION: Exam: CT Abdomen And Pelvis With Contrast Exam date and time: 05/30/2020 9:18 PM Age: 50 years old Clinical indication: Abdominal tenderness; Shortness of breath; Prior surgery; Surgery type: Gb; Additional info: SOB TECHNIQUE: Imaging protocol: Computed tomography of the abdomen and pelvis with intravenous contrast. Radiation optimization: All CT scans at this facility use at least one of these dose optimization techniques: automated exposure control; mA and/or kV adjustment per patient size (includes targeted exams where dose is matched to clinical indication); or iterative reconstruction. Contrast material: OMNI 350; Contrast volume: 95 ml; Contrast route: INTRAVENOUS (IV); COMPARISON: CT angio chest PE protcl [id number] 05/25/2020 6:36 PM RADIATION DOSE METRICS: Total DLP (mGy-cm): 1677.11 FINDINGS: Liver: Normal. No mass. Gallbladder and bile ducts: Cholecystectomy. Cholecystectomy. Pancreas: Normal. No ductal dilation. Spleen: Normal. No splenomegaly. Adrenals: Normal. No mass. Kidneys and ureters: Normal. No hydronephrosis. Stomach and bowel: Unremarkable. No obstruction. No mucosal thickening. Appendix: No evidence of appendicitis. Intraperitoneal space: Unremarkable. No free air. No significant fluid collection. Vasculature: Unremarkable. No abdominal aortic aneurysm. Lymph nodes: Unremarkable. No enlarged lymph nodes. Bladder: Unremarkable as visualized. Reproductive: Unremarkable as visualized. Bones/joints: Unremarkable. No acute fracture. Soft tissues: Unremarkable. CT/CT angio chest w abd pel w con IMPRESSION: Negative for acute inflammatory process Radiation Dose CTDIVOL = (mGy): DLP = 1677.11~1677.11 (mGy-cm)
--- NOTE | 2020-05-30 21:20 | ED_ITS ---
HPI - Back Pain/Injury General: Chief Complaint: Back Pain/Injury Stated Complaint: dbt wed/ lw bk pain Time Seen by Provider: 05/30/20 21:15 Source: patient Mode of arrival: ambulatory Limitations: no limitations History of Present Illness: HPI Narrative: 50-year-old male who was diagnosed a DVT 1 week ago and is currently on Eliquis. Patient states that today started having back pain when he would breathe deep states he had similar symptoms back in 2010 when he had a PE. He denies any chest pain. Denies any fever denies any worsening or improving factors. Associated symptoms: Deny abdominal pain, chills, dysuria, fever(s), nausea or vomiting Review of Systems Const: Denies: fever(s), chills, body aches or change in appetite Eyes: Denies: blurry vision or eye discomfort ENMT: Denies: throat pain or dental pain Card: Denies: chest pain Resp: Denies: dyspnea GI: Denies: abdominal pain, nausea, vomiting or diarrhea : Denies: dysuria Musc: Reports: back pain Skin/Breast: Denies: rash Neuro: Denies: headache(s) Psych: Denies: depression Trino/Lymph: Denies: easy bruising All/Imm: Denies: urticaria PFSH ED PFSH: Medical History History of DVT (deep vein thrombosis) History of pulmonary embolism Hypertension Social History Smoking and tobacco status: current every day smoker Physical Exam Const: COMMON NORMALS: no acute distress, patient oriented x3 and healthy appearing HENMT: COMMON NORMALS: normocephalic and atraumatic HEAD & SCALP: normocephalic and atraumatic Eye: COMMON NORMALS: Equal, round and reactive pupils present and EOMs intact bilaterally PUPIL: Yes Equal, round and reactive pupils present Neck/C-Spine: COMMON NORMALS: full ROM and supple Chest: COMMONS NORMALS: normal inspection of the chest and normal palpation of entire chest wall Resp: COMMON NORMALS: normal respiratory effort, No retractions, No use of accessory muscles and clear to auscultation bilaterally AUSCULTATION: clear to auscultation bilaterally Cardio: COMMON NORMALS: regular rate, regular rhythm and No murmurs present (Cardio) RATE: regular rate RHYTHM: regular rhythm GI: COMMON NORMALS: Normal to inspection, nondistended, normoactive bowel sounds present, Soft to palpation, non-tender and no masses PALPATION: Yes Soft to palpation Extremity: COMMON NORMALS: normal to inspection and full ROM Neuro: COMMON NORMALS: patient oriented x3, moves all extremities and no focal motor deficits Psych: COMMON NORMALS: mental status grossly normal, Normal thought process present and cooperative THOUGHT PROCESS: Normal thought process present Skin: COMMON NORMALS: no rashes or lesions noted and no wounds GENERAL SKIN EXAM: no rashes or lesions noted Course Vital Signs: Vital signs: Vital Signs Temperature 97.3 F L 05/30/20 20:58 Pulse Rate 79 05/30/20 21:36 Respiratory Rate 15 05/30/20 21:36 Blood Pressure 201/116 05/30/20 21:36 Pulse Oximetry 94 05/30/20 21:36 MDM - Back Pain/Injury MDM Narrative: Medical decision making narrative: Patient presents here with back pain he is worried he had a PE as this was a similar symptoms in the past. Patient CT of his abdomen and chest are negative. Blood work here is normal as well. Patient is stable for discharge and is to follow-up with primary care doctor in 3 to 5 days and return to ER if worsening. He understands and agrees to plan. Lab Data: Labs: Lab Results 05/30/20 05/30/20 05/30/20 Range/Units 21:25 21:25 21:25 WBC 8.7 (4.0-10.0) 10^3/ uL RBC 4.68 (4.1-5.3) 10^6/u L Hgb 14.5 (11.7-16.6) g/dL Hct 43.7 (42.0-52.0) % MCV 93.4 (80-94) fL MCH 31.0 (28.0-34.0) pg MCHC 33.2 (30.0-36.0) g/dL RDW 13.6 (12.1-15.1) % Plt Count 207 (130-400) 10^3/c mm MPV 9.5 (7.4-10.4) fL Neut % (Auto) 40.7 % Lymph % (Auto) 49.0 % [place] % (Auto) 7.8 % Eos % (Auto) 1.7 % Baso % (Auto) 0.6 % Neut # (Auto) 3.55 (1.8-7.7) 10^3/u L Lymph # (Auto) 4.3 (0.8-4.8) 10^3/u L [place] # (Auto) 0.7 (0.2-0.9) 10^3/u L Eos # (Auto) 0.2 (0.0-0.8) 10^3/u L Baso # (Auto) 0.1 (0.0-0.1) 10^3/u L Nucleated RBC % (a uto) 0 % Nucleated RBCs # 0.0 /100WBC PT 14.50 (12.1-14.9) SECO NDS INR 1.09 (0.8-1.2) Sodium 137 (136-145) mmol/L Potassium 3.5 (3.5-5.1) mmol/L Chloride 101 (98-107) mmol/L Carbon Dioxide 25 (22-29) mmol/L Anion Gap 14.5 (5-19) BUN 9 (6-20) mg/dL Creatinine 1.0 (0.7-1.2) mg/dL GFR Calculation 79.1 L (90-130) mL/min Glucose 111 (65-115) mg/dL Calculated Osmolal ity 281 L (285-295) mOsm/k g Calcium 8.8 (8.5-10.5) mg/dL Total Bilirubin 0.5 (0.15-1.2) mg/dL AST 23 (0-40) U/L ALT 14 (0-41) U/L Alkaline Phosphata se 81 (40-130) IU/L Total Protein 7.1 (6.6-8.7) g/dL Albumin 3.8 (3.5-5.2) g/dL Globulin 3.3 (1.3-4.6) g/dL Imaging Data^: CT Chest: Radiologist's impression: [address] [address] [address] Scan Report Signed Patient: Angel Hazel Unit #: [id number] : 1970 Age/Sex: 50 / M ADM Date: 05/30/20 Loc: ER Room/Bed: Attending Dr: Ordering Provider/Ordering MD: Efren Call MD Date of Service: 05/30/20 Procedure(s): CT angio chest w abd pel w con Accession Number(s): [id number] Report Number: [id number] PROCEDURE INFORMATION: Exam: CT Angiography Chest With Contrast Exam date and time: 05/30/2020 9:18 PM Age: 50 years old Clinical indication: Abdominal tenderness; Shortness of breath; Prior surgery; Surgery type: Gb; Additional info: SOB TECHNIQUE: Imaging protocol: Computed tomographic angiography of the chest with intravenous contrast. 3D rendering (Not supervised by radiologist): MIP and/or 3D reconstructed images were created by the technologist. Radiation optimization: All CT scans at this facility use at least one of these dose optimization techniques: automated exposure control; mA and/or kV adjustment per patient size (includes targeted exams where dose is matched to clinical indication); or iterative reconstruction. Contrast material: OMNI 350; Contrast volume: 95 ml; Contrast route: INTRAVENOUS (IV); COMPARISON: CT angio chest PE protcl [id number] 05/25/2020 6:36 PM RADIATION DOSE METRICS: Total DLP (mGy-cm): 1677.11 FINDINGS: Pulmonary arteries: Normal. No pulmonary emboli. Aorta: Unremarkable. No aortic aneurysm. No aortic dissection. Lungs: Right middle and lingular lobe atelectasis Pleural space: Unremarkable. No pneumothorax. No pleural effusion. Heart: Unremarkable. No cardiomegaly. No pericardial effusion. Lymph nodes: Unremarkable. No enlarged lymph nodes. Bones/joints: Unremarkable. No acute fracture. Soft tissues: Unremarkable. IMPRESSION: 1. Negative for pulmonary embolus 2. Right middle and lingular lobe atelectasis PROCEDURE INFORMATION: Exam: CT Abdomen And Pelvis With Contrast Exam date and time: 05/30/2020 9:18 PM Age: 50 years old Clinical indication: Abdominal tenderness; Shortness of breath; Prior surgery; Surgery type: Gb; Additional info: SOB TECHNIQUE: Imaging protocol: Computed tomography of the abdomen and pelvis with intravenous contrast. Radiation optimization: All CT scans at this facility use at least one of these dose optimization techniques: automated exposure control; mA and/or kV adjustment per patient size (includes targeted exams where dose is matched to clinical indication); or iterative reconstruction. Contrast material: OMNI 350; Contrast volume: 95 ml; Contrast route: INTRAVENOUS (IV); COMPARISON: CT angio chest PE protcl [id number] 05/25/2020 6:36 PM RADIATION DOSE METRICS: Total DLP (mGy-cm): 1677.11 FINDINGS: Liver: Normal. No mass. Gallbladder and bile ducts: Cholecystectomy. Cholecystectomy. Pancreas: Normal. No ductal dilation. Spleen: Normal. No splenomegaly. Adrenals: Normal. No mass. Kidneys and ureters: Normal. No hydronephrosis. Stomach and bowel: Unremarkable. No obstruction. No mucosal thickening. Appendix: No evidence of appendicitis. Intraperitoneal space: Unremarkable. No free air. No significant fluid collection. Vasculature: Unremarkable. No abdominal aortic aneurysm. Lymph nodes: Unremarkable. No enlarged lymph nodes. Bladder: Unremarkable as visualized. Reproductive: Unremarkable as visualized. Bones/joints: Unremarkable. No acute fracture. Soft tissues: Unremarkable. CT/CT angio chest w abd pel w con IMPRESSION: Negative for acute inflammatory process Discharge Plan Discharge Patient Disposition: Home Clinical Impression: Back pain Qualifiers: Back pain location: low back pain Chronicity: acute Back pain laterality: bilateral Sciatica presence: without sciatica Qualified Code(s): M54.5 - Low back pain Condition: Stable Prescriptions: No Action aspirin 325 mg Tablet 325 mg PO DAILY RF: 0 lisinopril 40 mg tablet 40 mg PO DAILY RF: 0 Discharge Orders: Discharge Order (Routine); Ordered 05/30/20 Ordered By: Efren Call Referrals: Riya Munoz APN [Primary Care Provider] - 1-3 days Discharge Diet: Advance as tolerated Discharge Activity: Resume usual activity Patient Instructions: Back Pain (ED) Coding Level of Care Code 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
[2020-05-30] MEDS: morphine 4 mg/mL SDV 1 mL IVP (21:32)
[2020-05-30 21:34] LABS: Basophils # 0.1 10^3/uL (0.0-0.1); Basophils % 0.6 %; Eosinophils # 0.2 10^3/uL (0.0-0.8); Eosinophils % 1.7 %; Hematocrit 43.7 % (42.0-52.0); Hemoglobin 14.5 g/dL (11.7-16.6); Lymphocytes # 4.3 10^3/uL (0.8-4.8); Mean Corpuscular HGB Conc 33.2 g/dL (30.0-36.0); Mean Corpuscular Volume 93.4 fL (80-94); Mean Platelet Volume 9.5 fL (7.4-10.4); Monocytes # 0.7 10^3/uL (0.2-0.9); Monocytes % 7.8 %; Neutrophils # 3.55 10^3/uL (1.8-7.7); Neutrophils % 40.7 %; Nucleated Red Blood Cells % 0 %; Platelet Count 207 10^3/cmm (130-400); Red Blood Count 4.68 10^6/uL (4.1-5.3); Red Cell Distribution Width 13.6 % (12.1-15.1); White Blood Count 8.7 10^3/uL (4.0-10.0)
[2020-05-30 21:36] VITALS: BP 201/116; PULSE 79; RESP 15; O2SAT 94
[2020-05-30 21:48] LABS: INR 1.09 (0.8-1.2)
[2020-05-30 21:53] LABS: Alanine Aminotransferase 14 U/L (0-41); Albumin Level 3.8 g/dL (3.5-5.2); Alkaline Phosphatase 81 IU/L (40-130); Anion Gap 14.5 (5-19); Aspartate Amino Transferase 23 U/L (0-40); Blood Urea Nitrogen 9 mg/dL (6-20); Calcium 8.8 mg/dL (8.5-10.5); Carbon Dioxide 25 mmol/L (22-29); Chloride 101 mmol/L (98-107); Globulin 3.3 g/dL (1.3-4.6); Glomerular Filtration Rate 79.1 mL/min (90-130); Glucose 111 mg/dL (65-115); Osmolality Calculated 281 mOsm/kg (285-295); Potassium 3.5 mmol/L (3.5-5.1); Sodium 137 mmol/L (136-145); Total Bilirubin 0.5 mg/dL (0.15-1.2); Total Protein 7.1 g/dL (6.6-8.7)
[2020-05-30] MEDS: hyDRALAzine 20 mg/mL INJ 1 mL 10 MG IVP (22:05)
[2020-05-30 22:06] LABS: Slide Review Slide Review Perform
[2020-05-30 23:10] VITALS: BP 149/90; PULSE 89; RESP 15; O2SAT 99
== END 2020-05-30 23:11 | disposition home or self-care (01) ==
PROVIDERS: Emergency Provider Emergency Medicine; PCP Nurse Practitioner
DX: M54.5 Low back pain (principal); Z79.82 Long term (current) use of aspirin; I10 Essential (primary) hypertension; Z86.718 Personal history of other venous thrombosis and embolism; F17.210 Nicotine dependence, cigarettes, uncomplicated
CPT/HCPCS: 12345; 71275; 74177; 80053; 85025; 85610; 96374; 96375; 99282; 99283; J0360; J2270; Q9967

== ENCOUNTER 2020-10-13 07:57 | Outpatient (CLI) | payer SELFPAY ==
--- NOTE | 2020-10-13 08:01 | USCV_ITS ---
YaseminAngel Age: 50 Gender: M : 1970 Exam Date: 10/13/2020 08:20 Ordering Phys: Riya Munoz APN Technologist: Deb Ling Exam Location: [facility] [place] Indication: DVT HISTORY: Patient has history of DVT. Patient ran out of medications has recently started again PROCEDURES: Venous duplex imaging was performed in only the left lower extremity. The following venous structures were evaluated: common femoral vein, profunda vein, proximal portion of the greater saphenous vein, superficial femoral vein, and the popliteal vein. In addition, the posterior tibial and peroneal trunk were evaluated. Serial compression, augmentation maneuvers, and spectral Doppler flow evaluation were performed. FINDINGS: Extensive occlusive DVT extends from the Left CFV to the left peroneal veins. No thrombus seen within the superficial system at this time. CONCLUSIONS Acute DVT left lower extremity. Dr. Kesha Obrien DO (Electronically Signed) Final Date: 13 October 2020 08:41 S
== END 2020-10-13 07:58 | disposition home or self-care (01) ==
LOC: RAD 07:59
PROVIDERS: PCP Nurse Practitioner; Visit Provider Nurse Practitioner
DX: I82.402 Acute embolism and thrombosis of unspecified deep veins of left lower extremity (principal)
CPT/HCPCS: 93971

== ENCOUNTER 2021-09-29 22:28 | Emergency (ER) | payer SELFPAY ==
--- NOTE | 2021-09-29 22:41 | XRR_ITS ---
PROCEDURE INFORMATION: Exam: XR Chest Exam date and time: 09/29/2021 10:41 PM Age: 51 years old Clinical indication: Other: Hemoptysis TECHNIQUE: Imaging protocol: XR of the chest. Views: 1 view. COMPARISON: CT angio chest w abd pel w con 05/30/2020 10:14 PM FINDINGS: Lungs: Unremarkable. No consolidation. Pleural spaces: Unremarkable. No pleural effusion. No pneumothorax. Heart/Mediastinum: Unremarkable. No cardiomegaly. Bones/joints: Unremarkable. Surgical changes to the left shoulder. Probable posttraumatic changes to the left AC joint region. XR/XR chest 1V portable [id number] IMPRESSION: No acute findings.
[2021-09-29 22:50] VITALS: BP 207/105; PULSE 66; RESP 16; TEMP 36.8; O2SAT 98
[2021-09-29 23:18] LABS: Basophils # 0.1 10^3/uL (0.0-0.1); Basophils % 0.8 %; Eosinophils # 0.1 10^3/uL (0.0-0.8); Eosinophils % 1.8 %; Hemoglobin 16.8 g/dL (11.7-16.6); Lymphocytes # 3.7 10^3/uL (0.8-4.8); Mean Corpuscular Hemoglobin 32.5 pg (28.0-34.0); Mean Corpuscular Volume 92.8 fl (80-94); Mean Platelet Volume 9.4 fL (7.4-10.4); Monocytes # 0.7 10^3/uL (0.2-0.9); Monocytes % 8.7 %; Neutrophils # 3.28 10^3/uL (1.8-7.7); Neutrophils % 41.6 %; Nucleated Red Blood Cells % 0 %; Platelet Count 151 10^3/cmm (130-400); Red Blood Count 5.17 10^6/uL (4.1-5.3); Red Cell Distribution Width 13.2 % (12.1-15.1); White Blood Count 7.9 10^3/uL (4.0-10.0)
--- NOTE | 2021-09-29 23:25 | CTR_ITS ---
PROCEDURE INFORMATION: Exam: CTA Chest With Contrast Exam date and time: 09/29/2021 11:25 PM Age: 51 years old Clinical indication: Shortness of breath and other: Hemoptysis; Additional info: SOB hemoptysis TECHNIQUE: Imaging protocol: Computed tomographic angiography of the chest with contrast. 3D rendering (Not supervised by radiologist): MIP and/or 3D reconstructed images were created by the technologist. Radiation optimization: All CT scans at this facility use at least one of these dose optimization techniques: automated exposure control; mA and/or kV adjustment per patient size (includes targeted exams where dose is matched to clinical indication); or iterative reconstruction. Contrast material: OMNI 350; Contrast volume: 79 ml; Contrast route: INTRAVENOUS (IV); COMPARISON: CT angio chest w abd pel w con 05/30/2020 10:14 PM RADIATION DOSE METRICS: Total DLP (mGy-cm): 518.87 FINDINGS: Pulmonary arteries: Pulmonary artery embolism is identified within the anterior segmental branch of the left upper lobe on axial image 150. There is no dilation of central pulmonary arteries. Aorta: Unremarkable. No aortic aneurysm. No aortic dissection. Lungs: Focal patchy ground-glass changes in the subpleural area of the anterior left upper lobe distal to the occluded pulmonary artery segment. Negative for endobronchial obstruction. Pleural spaces: Unremarkable. No pneumothorax. No pleural effusion. Heart: No significant cardiac chamber dilation. Negative for pericardial effusion. Heart RV/LV ratio: RV/LV ratio is less than 0.9. Lymph nodes: Unremarkable. No enlarged lymph nodes. Gallbladder and bile ducts: Cholecystectomy. Bones/joints: Unremarkable. No acute fracture. Soft tissues: Unremarkable. CT/CT angio chest PE protcl [id number] IMPRESSION: 1. Positive for pulmonary embolism. Left upper lobe anterior segmental pulmonary artery embolism is identified with probable small area anterior left upper lobe pulmonary infarction. 2. Negative for acute right heart strain features.
--- NOTE | 2021-09-29 23:26 | ECG_ITS ---
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 Measurements Intervals [place] Rate: 65 P: 60 WI: 175 QRS: 51 QRSD: 99 T: 42 QT: 405 QTc: 423 Interpretive Statements SINUS RHYTHM Compared to ECG 02/04/2017 05:52:09 Sinus bradycardia no longer present Electronically Signed On 09-30-2021 17:06:39 SAP BASIS ADMINISTRATOR by Lizet Mejía M.D. [id number]
[2021-09-29 23:36] LABS: Alanine Aminotransferase 9 U/L (0-41); Albumin Level 4.2 g/dL (3.5-5.2); Alkaline Phosphatase 77 IU/L (40-130); Blood Urea Nitrogen 15 mg/dL (6-20); Calcium 8.3 mg/dL (8.5-10.5); Carbon Dioxide 24 mmol/L (22-29); Chloride 102 mmol/L (98-107); Globulin 3.4 g/dL (1.3-4.6); Glomerular Filtration Rate 78.8 mL/min (90-130); Glucose 90 mg/dL (65-115); Osmolality Calculated 288 mOsm/kg (285-295); Sodium 139 mmol/L (136-145); Total Bilirubin 0.6 mg/dL (0.15-1.2); Total Protein 7.6 g/dL (6.6-8.7)
[2021-09-29 23:39] LABS: Anion Gap 17.1 (5-19); Aspartate Amino Transferase 15 U/L (0-40); Potassium 4.1 mmol/L (3.5-5.1)
[2021-09-29] MEDS: iohexol 350 mg/mL 100 mL Btl IV (23:40)
[2021-09-30 00:03] LABS: Troponin(5th) Baseline 6 ng/L (0-15)
[2021-09-30 00:12] LABS: NT Pro B Type Natriuretic Pept 870 pg/mL (0-125)
[2021-09-30 00:48] LABS: D Dimer 1.97 ug/mIFEU (0-0.59)
[2021-09-30] MEDS: enalaprilat 1.25 mg/mL Inj IVP (01:07)
[2021-09-30] MEDS: labetalol 5 mg/mL SDV 20mL 10 MG IVP (01:07)
[2021-09-30] MEDS: amlodipine 10 mg Tablet PO (01:07)
--- NOTE | 2021-09-30 01:26 | ECG_ITS ---
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 Measurements Intervals [place] Rate: 51 P: 45 TN: 191 QRS: 52 QRSD: 104 T: 40 QT: 456 QTc: 423 Interpretive Statements SINUS BRADYCARDIA WITH SINUS ARRHYTHMIA Compared to ECG 09/29/2021 22:56:31 Sinus rhythm no longer present Electronically Signed On 09-30-2021 17:12:13 TECHNICAL SERVICE REP by Lizet Mejía M.D. [id number]
[2021-09-30 01:51] VITALS: BP 190/109; PULSE 65; RESP 18; O2SAT 95
[2021-09-30 01:55] LABS: Troponin 5 2HR Delta 0 ABS# (0-10)
[2021-09-30 02:07] VITALS: RESP 18
[2021-09-30] MEDS: morphine 4 mg/mL SDV 1 mL IVP (02:07)
[2021-09-30] MEDS: ondansetron 2 mg/ML SDV 2 mL 4 MG IVP (02:07)
[2021-09-30] MEDS: apixaban 5 mg Tablet 20 MG PO (03:14)
[2021-09-30] MEDS: enoxaparin 100 mg/mL Syringe 90 MG SUBCUT (03:15)
[2021-09-30] MEDS: oxyCODONE-APAP 5-325 mg Tablet 2 TAB PO (03:39)
[2021-09-30] MEDS: labetalol 5 mg/mL SDV 20mL 20 MG IVP (03:48)
[2021-09-30 05:27] VITALS: BP 147/95
--- NOTE | 2021-09-30 17:42 | W.ED.SOB ---
HPI - SOB/Dyspnea General: Chief Complaint: Shortness of Breath/Dyspnea Stated Complaint: COUGHING UP BLOOD Time Seen by Provider: 09/29/21 23:05 History of Present Illness: HPI Narrative: 51-year-old male with a history of DVT/PE. He is on Eliquis chronically, but has not taken his Eliquis in 3 weeks or so due to not making it to the pharmacy. He states that he has a refill available there. He presents with pleuritic left-sided chest wall pain for the last couple of days. No real shortness of breath. He developed a cough this afternoon, and coughed up some frothy pink sputum as well as some blood-streaked sputum. This concerned his son, and so his son made him come to the emergency room. No fever. No other sputum production. No syncope. MD elicited complaint: cough and chest pain Pertinent past history: PE and DVT Onset (ago): day(s) Timing: constant Severity: moderate Exacerbating factors: inspiration Known history of: PE and DVT Associated symptoms: Reports chest pain, cough and hemoptysis; Deny abdominal pain, chest congestion, diaphoresis, dizziness, extremity pain, fever(s), nausea, syncope or vomiting Treatment prior to arrival: none Review of Systems Const: Denies: fever(s) or diaphoresis Card: Reports: chest pain; Denies: syncope Resp: Reports: hemoptysis; Denies: chest congestion GI: Denies: abdominal pain, nausea or vomiting Musc: Denies: extremity pain Neuro: Denies: dizziness PFS ED PFSH: Medical History (Updated 09/30/21 @ 03:15 by Nghia Bonilla DO) History of DVT (deep vein thrombosis) History of pulmonary embolism Hypertension Social History Smoking and tobacco status: current every day smoker Physical Exam Const: COMMON NORMALS: no acute distress and healthy appearing GENERAL APPEARANCE: cooperative and comfortable HENMT: COMMON NORMALS: normocephalic and atraumatic HEAD & SCALP: normocephalic and atraumatic Eye: COMMON NORMALS: Equal, round and reactive pupils present and EOMs intact bilaterally PUPIL: Yes Equal, round and reactive pupils present Chest: COMMONS NORMALS: normal inspection of the chest Resp: COMMON NORMALS: normal respiratory effort, No use of accessory muscles and clear to auscultation bilaterally AUSCULTATION: clear to auscultation bilaterally Cardio: COMMON NORMALS: regular rate and regular rhythm RATE: regular rate and not tachycardic RHYTHM: regular rhythm GI: COMMON NORMALS: Normal to inspection, nondistended, normoactive bowel sounds present, Soft to palpation and non-tender PALPATION: Yes Soft to palpation Course Consultations: Consultation #1: [email or web address] Vital Signs: Vital signs: Vital Signs Temperature 98.2 F 09/29/21 22:50 Pulse Rate 65 09/30/21 01:51 Respiratory Rate 18 09/30/21 02:07 Blood Pressure 147/95 09/30/21 05:27 Pulse Oximetry 95 09/30/21 01:51 MDM - SOB/Dyspnea MDM Narrative: Medical decision making narrative: 51-year-old gentleman with his other labs are normal. He did have an elevated D-dimer though. His CTA of the chest shows a left upper lobe subsegmental pulmonary embolus with surrounding infarct that is mild. This is in the distribution of his pain which is not really reproducible on exam. This gentleman is nonhypoxic, not using oxygen, with a pulse of 65. He was quite hypertensive on arrival, which improved after antihypertensives to 147/95. He was given a shot of Lovenox. We consulted hospitalist about admission, and gave the patient the option of admission given his hemoptysis. It is Boy Rahel, and the patient wanted to go home. He has a Eliquis prescription waiting, but tomorrow is Boy. He is given Eliquis for home at 10 mg twice daily, and a new prescription as he will need to restart therapeutic dosing and load at 10 mg twice daily for a week followed by 5 mg twice daily. He was counseled on this. He was also counseled to return for any worsening shortness of breath, chest discomfort or any other concerning symptoms including worsening hemoptysis. Given his hypertension he was encouraged to check his blood pressures twice daily, and report numbers to his physician, as an increase in antihypertensive medication may be needed. Lab Data: Labs: Lab Results 09/29/21 09/29/21 09/29/21 23:10 23:10 23:15 WBC 7.9 10^3/uL 10^3/ uL (4.0-10.0) RBC 5.17 10^6/uL 10^6 /uL (4.1-5.3) Hgb 16.8 g/dL H g/dL (11.7-16.6) Hct 48.0 % % (42.0-52.0) MCV 92.8 fl fl (80-94) MCH 32.5 pg pg (28.0-34.0) MCHC 35.0 g/dL g/dL (30.0-36.0) RDW 13.2 % % (12.1-15.1) Plt Count 151 10^3/cmm 10^3 /cmm (130-400) MPV 9.4 fL fL (7.4-10.4) Neut % (Auto) 41.6 % % Lymph % (Auto) 47.0 % % Dixon % (Auto) 8.7 % % Eos % (Auto) 1.8 % % Baso % (Auto) 0.8 % % Neut # (Auto) 3.28 10^3/uL 10^3 /uL (1.8-7.7) Lymph # (Auto) 3.7 10^3/uL 10^3/ uL (0.8-4.8) Dixon # (Auto) 0.7 10^3/uL 10^3/ uL (0.2-0.9) Eos # (Auto) 0.1 10^3/uL 10^3/ uL (0.0-0.8) Baso # (Auto) 0.1 10^3/uL 10^3/ uL (0.0-0.1) Nucleated RBC % (a uto) 0 % % Nucleated RBCs # 0.0 /100WBC /100W BC D-Dimer Sodium 139 mmol/L mmol/L (136-145) Potassium 4.1 mmol/L mmol/L (3.5-5.1) Chloride 102 mmol/L mmol/L (98-107) Carbon Dioxide 24 mmol/L mmol/L (22-29) Anion Gap 17.1 (5-19) BUN 15 mg/dL mg/dL (6-20) Creatinine 1.0 mg/dL mg/dL (0.7-1.2) GFR Calculation 78.8 mL/min L mL/ min (90-130) Glucose 90 mg/dL mg/dL (65-115) Calculated Osmolal ity 288 mOsm/kg mOsm/ kg (285-295) Calcium 8.3 mg/dL L mg/dL (8.5-10.5) Total Bilirubin 0.6 mg/dL mg/dL (0.15-1.2) AST 15 U/L U/L (0-40) ALT 9 U/L U/L (0-41) Alkaline Phosphata se 77 IU/L IU/L (40-130) Troponin T Baselin e Troponin T 120 Min [place] Delta Troponin T NT-Pro-B Natriuret Pep 870 pg/mL H pg/mL (0-125) Total Protein 7.6 g/dL g/dL (6.6-8.7) Albumin 4.2 g/dL g/dL (3.5-5.2) Globulin 3.4 g/dL g/dL (1.3-4.6) 09/29/21 09/30/21 09/30/21 23:15 00:20 01:29 WBC RBC Hgb Hct MCV MCH MCHC RDW Plt Count MPV Neut % (Auto) Lymph % (Auto) Dixon % (Auto) Eos % (Auto) Baso % (Auto) Neut # (Auto) Lymph # (Auto) Dixon # (Auto) Eos # (Auto) Baso # (Auto) Nucleated RBC % (a uto) Nucleated RBCs # D-Dimer 1.97 ug/mIFEU H u g/mIFEU (0-0.59) Sodium Potassium Chloride Carbon Dioxide Anion Gap BUN Creatinine GFR Calculation Glucose Calculated Osmolal ity Calcium Total Bilirubin AST ALT Alkaline Phosphata se Troponin T Baselin e 6 ng/L ng/L (0-15) Troponin T 120 Min [place] 6.00 ng/L ng/L (0-15) Delta Troponin T 0 ABS# ABS# (0-10) NT-Pro-B Natriuret Pep Total Protein Albumin Globulin Discharge Plan Discharge Patient Disposition: Home Clinical Impression: Pulmonary embolism Qualifiers: Pulmonary embolism type: other Chronicity: acute Acute cor pulmonale presence: without acute cor pulmonale Qualified Code(s): I26.99 - Other pulmonary embolism without acute cor pulmonale Condition: Stable Prescriptions: New Eliquis 5 mg tablet 5 mg PO BID Qty: 74 RF: 0 hydrocodone-acetaminophen 5-325 mg tablet 1 tab PO Q8H PRN (Reason: pain) Qty: 7 RF: 0 No Action aspirin 325 mg Tablet 325 mg PO DAILY RF: 0 lisinopril 40 mg tablet 40 mg PO DAILY RF: 0 Discharge Orders: Discharge ED (Routine); Ordered 09/30/21 Ordered By: Nghia Bonilla Referrals: Riya Munoz, CORK FLOOR INSTALLER [Primary Care Provider] - 4-7 days Patient Instructions: Pulmonary Embolism (ED), Opioid Safety Activity Restrictions/Additional Instructions: Return for worsening pain despite treatment, shortness of breath, coughing up large clots despite treatment, fever greater than 100, other concerning symptoms. Medications as directed. Coding Level of Care Code ED Window Shade Cutter for Siva Nixon
== END 2021-09-30 05:27 | disposition home or self-care (01) ==
PROVIDERS: Physician Assistant; Emergency Provider Emergency Medicine; PCP Nurse Practitioner
DX: I26.99 Other pulmonary embolism without acute cor pulmonale (principal); Z79.82 Long term (current) use of aspirin; I10 Essential (primary) hypertension; Z86.718 Personal history of other venous thrombosis and embolism; Z86.711 Personal history of pulmonary embolism; F17.210 Nicotine dependence, cigarettes, uncomplicated
CPT/HCPCS: 36415; 71045; 71275; 80053; 83880; 84484; 85025; 85378; 93005; 96372; 96374; 96375; 96376; 99284; J1650; J2270; J2405; J3490; Q9967